=== PATIENT | female | born 2000 | race African-American/Black ===

== ENCOUNTER 2019-04-03 10:38 | Emergency (ER) | payer BC, OTHER ==
[2019-04-03 11:00] VITALS: BMI 20.1
--- NOTE | 2019-04-03 11:05 | PDOC ---
History of Present Illness - General Chief Complaint: Allergic Reaction Stated Complaint: ALLERGIC REACTION Time Seen by Provider: 04/03/19 11:00 Past History - Past Medical History Allergies/Adverse Reactions: Allergies Allergy/AdvReac Type Severity Reaction Status Date / Time shahrzad Allergy Severe Swelling Verified 04/03/19 11:00 pineapple Allergy Severe Swelling Verified 04/03/19 10:53 Home Medications: Ambulatory Orders NK [No Known Home Medication] 04/03/19 - Suicide/Smoking/Psychosocial Hx Smoking History: Never smoked Hx Alcohol Use: No Drug/Substance Use Hx: No *Physical Exam - Vital Signs Last Vital Signs Temp Pulse Resp BP Pulse Ox 98.5 F 95 H 18 117/82 100 04/03/19 10:53 04/03/19 10:53 04/03/19 10:53 04/03/19 10:53 04/03/19 10:53
--- NOTE | 2019-04-03 11:37 | PDOC ---
History of Present Illness - General Chief Complaint: Allergic Reaction Stated Complaint: ALLERGIC REACTION Time Seen by Provider: 04/03/19 11:00 Past History - Past Medical History Allergies/Adverse Reactions: Allergies Allergy/AdvReac Type Severity Reaction Status Date / Time shahrzad Allergy Severe Swelling Verified 04/03/19 11:00 pineapple Allergy Severe Swelling Verified 04/03/19 10:53 Home Medications: Ambulatory Orders EPINEPHrine (EPI-PEN 0.3MG) [Epipen 0.3MG -] 0.3 mg IM ASDIR #2 pens 04/03/19 - Suicide/Smoking/Psychosocial Hx Smoking History: Never smoked Hx Alcohol Use: No Drug/Substance Use Hx: No *Physical Exam - Vital Signs Last Vital Signs Temp Pulse Resp BP Pulse Ox 98.5 F 95 H 18 117/82 100 04/03/19 10:53 04/03/19 10:53 04/03/19 10:53 04/03/19 10:53 04/03/19 10:53 Medical Decision Making - Medical Decision Making 04/03/19 11:37 18 year old prior history pineapple allergy 3 years ago who presents with upper lip swelling since last night after eating shahrzad rojas with mild improvement with benadryl and ibuprofen. The patient was seen at an urgent care where she was given benadryl, solumedrol and IM epinephrine. The patient denies throat, itching, difficulty breathing, swelling in the tongue, redness or rash in the mouth or elsewhere. Past allergic reaction to pineapple presented with redness in the throat with raised bumps. 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 No weakness. HEAD, EYES, EARS, NOSE AND THROAT: No change in vision. No ear pain or discharge. No sore throat. CARDIOVASCULAR: No chest pain or shortness of breath RESPIRATORY: No cough, wheezing, or hemoptysis. GASTROINTESTINAL: No nausea, vomiting, diarrhea or constipation. GENITOURINARY: No dysuria, frequency, or change in urination. MUSCULOSKELETAL: No joint or muscle swelling or pain. No neck or back pain. SKIN: No rash NEUROLOGIC: No headache, vertigo, loss of consciousness, or change in strength/ sensation. PE GENERAL: Awake, alert, and fully oriented, in no acute distress HEAD: No signs of trauma, normocephalic, atraumatic EYES: EOMI, sclera anicteric, conjunctiva clear ENT: oropharynx clear without exudates. Moist mucosa NECK: Normal ROM, supple LUNGS: No distress, speaks full sentences, clear to auscultation bilaterally HEART: Regular rate and rhythm, normal S1 and S2, no murmurs, rubs or gallops, peripheral pulses normal and equal bilaterally. ABDOMEN: Soft, nontender, normoactive bowel sounds. No guarding, no rebound. No masses EXTREMITIES : Normal inspection, Normal range of motion, no edema. No clubbing or cyanosis. NEUROLOGICAL: Cranial nerves II through XII grossly intact. Normal speech, normal gait, no focal sensorimotor deficits SKIN: Warm, Dry, normal turgor, no rashes or lesions noted MDM 18 year old prior history pineapple allergy 3 years ago who presents with upper lip swelling since last night after eating shahrzad rojas with mild improvement with benadryl and ibuprofen. DDX including but not limited to: allergic reaction vs angioedema vs drug reaction ED Course: Will observe patient for approx 4 hours Pt recrieved approp treatment at urgent care. 1L NS running Likely discharge with home epi pen. Karine Asher, PGY2 Emergency Medicine *DC/Admit/Observation/Transfer Diagnosis at time of Disposition: Allergic reaction - Discharge Dispostion Disposition: HOME Condition at time of disposition: Stable Decision to Admit order: No - Referrals Referrals: Glenna Hamilton MD [Primary Care Provider] - - Patient Instructions Printed Discharge Instructions: Anaphylaxis Additional Instructions: You were seen in the ED for complaints of allergic reaction with lip swelling. In the ED you were evaluated and observed in the ED. There does not appear to be an acute need for immediate hospitalization. You are advised to follow up with your Primary Care Physician within 1 week. You have an appointment for an Siene Maker this month. If you cannot make this appointment you have a referral provided here for an Siene Maker. Avoid Ibuprofen. You were given a prescription for an EpiPen. Use this pen if you experience an allergic reaction, tightness in the throat, difficulty breathing. Return to the ED immediately if you experience worsening symptoms, swelling in the face or tongue, difficulty breathing, tightness in the throat or a diffuse rash on the body or face. How to Use an EpiPen - Place the orange tip against the middle of the outer thigh. - Swing and push the auto-injector firmly into the thigh until it clicks - Hold firmly in place for 3 seconds count slowly, 1, 2, 3 - Post Discharge Activity
--- NOTE | 2019-04-03 13:22 | PDOC ---
Documentation entered by Eulalia Blackburn SCRIBE, acting as scribe for Aureliano Salas MD. Aureliano Salas MD: This documentation has been prepared by the Alexey zhang Brenda, SCRIBE, under my direction and personally reviewed by me in its entirety. I confirm that the documentation accurately reflects all work, treatment, procedures, and medical decision making performed by me. Attending Attestation - Resident Resident Name: Karine Asher - ED Attending Attestation I have performed the following: I have examined & evaluated the patient, The case was reviewed & discussed with the resident, I agree w/resident's findings & plan, Exceptions are as noted - HPI HPI: 04/03/19 11:14 The patient is a 18 year old female, with no significant PMH who presents to the emergency department BIBA with an allergic reaction. As per patient, she ate rojas yaya last night, at which time her top lip got really swollen. She states that upon waking up this morning, her lip was still swollen, prompting her to go to Urgent Care. She reports she was given, epi, benadryl and solumedrol, and was sent to the ED. As per patient, she has eaten rojas yaya before without this reaction. The patient denies itchiness or difficulty breathing. Denies chest pain, headache and dizziness. Denies fever, chills, nausea, vomiting, diarrhea and constipation. Denies any urinary symptoms. Allergies: Yaya, Pineapples - recent reaction onset 3 years ago. Past surgical history: Not reported Social history: Lives at home with family. 04/03/19 12:17 - Physicial Exam PE: 04/03/19 12:21 Vitals: Triage Vital signs reviewed General Appearance: (+) Upper lip swelling. No acute distress, well nourished well developed, Head: Atraumatic, normocephalic Throat: Posterior oropharynx without erythema, mucous membranes moist, Neck: Supple;No Nuchal rigidity Chest Wall: Nontender Cardiac: Regular rate and rhythm, no murmurs, no rubs, no gallops, Lungs: Clear to auscultation bilateral, good air movement bilaterally, Extremities: Full range of motion to all extremities, no cyanosis, clubbing, or edema Skin: Warm and dry, no rashes or lesions, no petechiae Neuro: AOX3; Cranial Nerves 2-12 grossly c intact, Strength intact to all extremities, Sensation intact to all extremities Psych: normal mood, normal affect - Medical Decision Making 04/03/19 15:26 Patient with long-standing history of ALLERGIC reaction and swelling to upper lip. Normally responsive Benadryl this time it did not. En route to hospital patient received epinephrine site Medrol and IV Benadryl Given the patient received epinephrine we'll observe patient for 4 hours in the emergency department. On examination there is no stridor no airway involvement no tongue swelling or airway compromise Reevaluation patient observed for 4 hours lip swelling is improving patient feels much better reevaluation demonstrates no airway involvement She'll be discharged home with Medrol Dosepak EpiPen Benadryl and Pepcid She will follow-up with her [facility] in 1-2 days. Findings, the need for follow-up and strict return instructions discussed with patient.
[2019-04-03 14:25] VITALS: BP 103/53; PULSE 80; TEMP 98
[2019-04-03] MEDS ORDERED: ONDANSETRON *ODT* 4 MG TABLET ONE (16:28)
== END 2019-04-03 14:51 | disposition home or self-care (01) ==
LOC: JER 10:38
DX: T78.40XA Allergy, unspecified, initial encounter (principal)
CPT/HCPCS: 99283-25